=== PATIENT | female | born 1935 | race Caucasian/White ===

== ENCOUNTER 2022-06-04 13:09 | Emergency (ER) | payer MEDICARE, MEDICAID ==
[~2022-06-04] VITALS: Ht 162.6 cm; Wt 82.6 kg
[2022-06-04 13:12] VITALS: BP 128/88
[2022-06-04] MEDS ORDERED: FLUC100T PO (14:23)
== END 2022-06-04 14:36 | disposition home or self-care (01) ==
LOC: ER 13:11
DX: B35.0 Tinea barbae and tinea capitis (principal); Z79.899 Other long term (current) drug therapy
CPT/HCPCS: 99283

== ENCOUNTER 2022-07-01 10:59 | Emergency (ER) | payer MEDICARE, MEDICAID ==
[~2022-07-01] VITALS: Ht 167.6 cm; Wt 81.8 kg
[~2022-07-01 10:59] MED LIST: FLUC100T PO
[2022-07-01 11:22] VITALS: BP 159/80
[2022-07-01] MEDS ORDERED: [UNRECOGNIZED DRUG - CODE] TOP (14:12)
[2022-07-01] MEDS ORDERED: LOTLOT TOP (14:12)
== END 2022-07-01 14:38 | disposition home or self-care (01) ==
LOC: ER 10:59
DX: L40.8 Other psoriasis (principal); L53.8 Other specified erythematous conditions
CPT/HCPCS: 99283

== ENCOUNTER 2022-10-21 11:49 | Emergency (ER) | payer MEDICARE, MEDICAID ==
[~2022-10-21] VITALS: Ht 162.6 cm; Wt 75.0 kg
[~2022-10-21 11:49] MED LIST changes: -FLUC100T PO; +LOTLOT TOP; +[UNRECOGNIZED DRUG - CODE] TOP
[2022-10-21 15:26] VITALS: BP 158/99; PULSE 94; RESP 18; TEMP 97; O2SAT 99
== END 2022-10-21 21:00 | disposition left against medical advice (07) ==
LOC: ER 11:50
DX: R51.9 Headache, unspecified (principal); Z53.21 Procedure and treatment not carried out due to patient leaving prior to being seen by health care provider
CPT/HCPCS: 99281